=== PATIENT | male | born 1975 | race Two or more races ===

== ENCOUNTER 2017-08-04 10:48 | Day surgery (SDC) | payer OTHER ==
[~2017-08-04 10:48] MED LIST: ACETAMINOPHEN 1,000 MG/100 ML BTL IV ONE
[2017-08-04] MEDS ORDERED: MORPHINE SULFATE 5 MG/ML PFS IVP ONE (10:49)
[2017-08-04] MEDS ORDERED: PROPOFOL 10 MG/ML VIAL IV ONE (10:49)
[2017-08-04] MEDS ORDERED: BUPIVACAINE 0.25% W/EPI MPF 30ML VIAL IVP ONE (10:49)
[2017-08-04] MEDS ORDERED: LIDOCAINE 2% MDV (20MG/ML) 20ML VIAL IV ONE (10:49)
[2017-08-04] MEDS ORDERED: SEVOFLURANE 250 ML INH ONE (10:49)
--- NOTE | 2017-08-08 10:51 | Operative Note ---
DATE OF SURGERY: 08/04/2017 Surgeon: Gibran Kang DO PREOPERATIVE DIAGNOSIS: Torn medial meniscus of the left knee. POSTOPERATIVE DIAGNOSIS: Torn medial meniscus of the left knee. OPERATION: Arthroscopic partial medial meniscectomy left knee. DESCRIPTION OF PROCEDURE: This 42-year-old male was taken to the operating room and placed in the supine position on the operating room table. A general anesthetic was administered. The left lower extremity was elevated. His knee was exsanguinated and the tourniquet inflated to 300 mmHg. Arthroscopic knee schmidt applied. Left knee prepped with Hibiclens and draped in the usual sterile fashion. An inferolateral portal was established for the 4 mm arthroscope and initial evaluation of the joint demonstrated normal appearance of the suprapatellar pouch. Minimal scuffing of the patella was present but it was not stable enough to further disturb. The trochlea appeared normal. The medial and lateral gutters were normal. The medial compartment was entered and a complex tear of the medial meniscus was present. A radial-type tear was present at approximately the 10-o'clock position, and this horizontal cleavage tear then extended around to the posterior attachment but there was no evidence of a root tear. The patient had minimal scuffing of the articular cartilage at the tibial plateau but it was not unstable enough to further disturb. The basket forceps and rotating shaver were used to resect to the apex of the tear of the medial meniscus and then tapered in each direction to restore stability to the remaining meniscus which was re-probed and confirmed to be stable. The intracondylar notch was examined. ACL and PCL were seen to be normal. The lateral compartment was entered and probing of the lateral meniscus did not reveal any pathology. The joint was then copiously irrigated and suctioned with all areas being reexamined. No additional findings were present. The joint was suctioned and the instruments were removed. The patient taken to the recovery room in satisfactory condition. GROSS PATHOLOGY: This patient demonstrated a complex tear of the medial meniscus of the left knee with both radial and horizontal cleavage components as described above. CC: Magdy Renee DO [facility]ENTERThien
== END 2017-08-04 14:10 | disposition home or self-care (01) ==
LOC: SUR 10:48
PROVIDERS: ATTEND Orthopaedic Surgery
DX: S83.232A Complex tear of medial meniscus, current injury, left knee, initial encounter (principal)